=== PATIENT | female | born 1955 | race Caucasian/White ===

== ENCOUNTER 2016-11-05 03:03 | Inpatient (IN) ==
[2016-10-31 08:44] LABS: MANUAL DIFF NEEDED? NO; URINE MICRO REVIEW NEEDED? NO; URINE SOURCE CLEAN CATCH
[2016-10-31 08:59] LABS: BILIRUBIN URINE NEGATIVE (NEGATIVE); BLOOD URINE NEGATIVE (NEGATIVE); COLOR YELLOW; GLUCOSE URINE NEGATIVE (NEGATIVE); LEUKOCYTES URINE NEGATIVE (NEGATIVE); NITRITE URINE NEGATIVE (NEGATIVE); PH URINE 5.5; PROTEIN URINE NEGATIVE (NEGATIVE); SP GRAVITY URINE 1.019; TURBIDITY URINE CLEAR (CLEAR); UROBILINOGEN URINE NORMAL (NORMAL)
[2016-10-31 09:00] LABS: BASO% 0.9 % (0.0-0.8); EOS% 1.8 % (0.0-10.0); HEMATOCRIT 38.7 % (37.0-47.0); HEMOGLOBIN 12.5 g/dL (12.0-16.0); LYMPH# 1.37 X1000 (1.2-3.4); LYMPH% 24.1 % (20.5-51.1); MCH 27.1 PG (27-31); MCHC 32.3 g/dL (33-37); MCV 83.9 FL (81-99); MONO# 0.47 X1000 (0.11-0.59); MONO% 8.3 % (1.7-9.3); MPV 9.3 FL (7.4-10.4); NEUT% 64.9 % (42.2-75.2); PLT 286 X1000 (130-400); RBC 4.61 XMIL (4.2-5.4); UR EPITHELIAL CELLS <10 /HPF (<10); URINE BACTERIA 1+ /HPF; URINE RBC <10 /HPF (<10); URINE WBC <10 /HPF (<10)
[2016-10-31 09:03] LABS: INR 1.01; PROTIME 10.6 Seconds (9.2-11.7); PTT 27.4 Seconds (22.0-36.0)
[2016-10-31 09:22] LABS: AGAP 13; BUN 18 mg/dL (8-22); CALCIUM 8.9 mg/dL (8.8-10.2); CHLORIDE 105 mmol/L (98-107); COSMO 290; POTASSIUM 4.1 mmol/L (3.5-5.1); SODIUM 143 mmol/L (136-145); TCO2 25 mmol/L (25-35)
--- NOTE | 2016-10-31 11:49 | EKG Report ---
Test Performed on : 10/31/2016 08:29:46 AM Test Reason : MD ORDER Blood Pressure : / mmHG Vent. Rate : 080 BPM Atrial Rate : 080 BPM P-R Int : 158 ms QRS Dur : 074 ms QT Int : 386 ms P-R-T Axes : 014 015 029 degrees QTc Int : 445 ms Normal sinus rhythm. Normal ECG When compared with ECG of 15-JUL-2010 18:59, fusion complexes are no longer present premature ventricular complexes. are no longer present Confirmed by Edison BARBOUR, Xander Barbour ([id number]) on 10/31/2016 2:56:26 PM
[2016-11-05] MEDS ORDERED: PEPCID ONE (06:06)
[2016-11-05] MEDS ORDERED: CELEBREX ONE (06:06)
[2016-11-05] MEDS ORDERED: COLACE ONE (06:06)
[2016-11-05] MEDS ORDERED: REGLAN ONE (06:06)
[2016-11-05] MEDS ORDERED: VANCOMYCIN 1 GM/NS 1 GM/250 ML IVPB ONE (06:07)
[2016-11-05] MEDS ORDERED: LR 1,000 ML ONE (06:07)
[2016-11-05] MEDS ORDERED: LYRICA ONE (06:07)
[2016-11-05] MEDS ORDERED: DIPRIVAN 1% ONE ×2 (06:31→07:38)
[2016-11-05] MEDS ORDERED: XYLOCAINE-MPF 2% ONE (06:32)
[2016-11-05] MEDS ORDERED: QUELICIN (DOSE) ONE (06:32)
[2016-11-05] MEDS ORDERED: FENTANYL ONE (06:32)
[2016-11-05] MEDS ORDERED: ROBINUL ONE (06:32)
[2016-11-05] MEDS ORDERED: ATROPINE ONE (06:33)
[2016-11-05] MEDS ORDERED: SODIUM CHLORIDE 0.9% 10 ML ONE (06:54)
[2016-11-05] MEDS ORDERED: EPHEDRINE ONE (06:54)
[2016-11-05] MEDS ORDERED: CYKLOKAPRON 1,000 MG/NS 1,000 MG/100 ML IVPB ONE ×2 (06:56→06:58)
[2016-11-05] MEDS ORDERED: VANCOMYCIN ONE (06:56)
[2016-11-05] MEDS ORDERED: TORADOL ONE (06:56)
[2016-11-05] MEDS ORDERED: SODIUM CHLORIDE 0.9% ONE (06:56)
[2016-11-05] MEDS ORDERED: MARCAINE 0.25% PF/EPI 1:200,000 ONE (06:56)
[2016-11-05] MEDS ORDERED: DURAMORPH ONE (06:56)
[2016-11-05] MEDS ORDERED: VERSED ONE ×2 (06:57→07:59)
[2016-11-05] MEDS ORDERED: EXPAREL 1.3% ONE (06:57)
[2016-11-05] MEDS ORDERED: NEOSPORIN G.U. IRRIGANT ONE (06:57)
[2016-11-05] MEDS ORDERED: NEO-SYNEPHRINE ONE (07:33)
[2016-11-05] MEDS ORDERED: DECADRON ONE (08:20)
[2016-11-05] MEDS ORDERED: ZOFRAN ONE (08:20)
[2016-11-05 08:24] LABS: URINE MICRO REVIEW NEEDED? NO; URINE SOURCE CATH
[2016-11-05] MEDS ORDERED: OFIRMEV 1000 MG/ISOTONIC SOLN 1,000 MG/100 ML BOTTLE ONE (08:27)
[2016-11-05 08:41] LABS: BILIRUBIN URINE NEGATIVE (NEGATIVE); BLOOD URINE NEGATIVE (NEGATIVE); COLOR YELLOW; GLUCOSE URINE NEGATIVE (NEGATIVE); LEUKOCYTES URINE NEGATIVE (NEGATIVE); NITRITE URINE NEGATIVE (NEGATIVE); PH URINE 5.5; PROTEIN URINE NEGATIVE (NEGATIVE); SP GRAVITY URINE 1.021; TURBIDITY URINE CLEAR (CLEAR); UROBILINOGEN URINE NORMAL (NORMAL)
[2016-11-05 08:42] LABS: UR EPITHELIAL CELLS <10 /HPF (<10); URINE BACTERIA NEGATIVE /HPF; URINE RBC <10 /HPF (<10); URINE WBC <10 /HPF (<10)
[2016-11-05] MEDS ORDERED: NS 1,000 ML ONE (10:21)
[2016-11-05] MEDS ORDERED: ZOFRAN IV PRN (11:30)
[2016-11-05] MEDS ORDERED: MORPHINE IV PRN (11:30)
[2016-11-05] MEDS ORDERED: AMBIEN PO PRN (11:30)
[2016-11-05] MEDS ORDERED: MILK OF MAGNESIA PO PRN (11:30)
--- NOTE | 2016-11-05 11:31 | OPERATIVE NOTE ---
PROCEDURE DATE: 11/05/2016 PREOPERATIVE DIAGNOSIS: Left knee degenerative joint disease. POSTOPERATIVE DIAGNOSIS: Left knee degenerative joint disease. PROCEDURE PERFORMED: Left total knee arthroplasty using a [employer] size 7 femoral component, size 6 tibial baseplate, a 14 mm articular insert, and a 35 mm patellar component. SURGEON: Steve Pantoja MD STEAM TENDER: Elyse Ya PA-C. 2ND STEAM TENDER: Eder Rodriguez PA-C ANESTHESIA: Spinal. COMPLICATIONS: None. BLOOD LOSS: Minimal. DRAINS: Hemovac x1. DESCRIPTION OF PROCEDURE: The patient was brought to the operative suite and placed in supine position. After successful administration of general anesthesia, a well-padded tourniquet was placed on the left proximal thigh. The left lower extremity was prepped and draped in the usual sterile fashion. The leg was exsanguinated. The tourniquet was insufflated to 350 torr. A longitudinal incision was made beginning at the superior pole of the patella and extended distally to the tibia tuberosity. It was dissected sharply through the skin. Full-thickness skin flaps were elevated medially and laterally. A medial arthrotomy was made with a vastus snip. The medial capsule was elevated off the medial tibial plateau. The prepatellar fat pad, ACL, PCL, medial meniscus, and lateral meniscus were excised. A drill was entered in the center of distal femur. An intramedullary guide was placed. A distal cutting block was pinned into place. A distal cut was made with an oscillating saw. The femur was sized to a size 7. A size 7 cutting block was pinned in place. Anterior cuts, chamfer cuts, and posterior condylar cuts were made with an oscillating saw. Marginal osteophytes were removed with a rongeur. A box cutting block was pinned into place. A box cut was made with a box osteotome and oscillating saw. Posterior condyle osteophytes were removed with a curved osteotome and rongeur. Attention was then directed to the tibia. A drill was entered in the center of the tibia. An intramedullary guide was placed. Alignment was checked with a drop lisy, referencing off the anterior cortex of the tibia and the second ray of the foot, taking 4 mm off the low side of the tibia which, in this case, was medially. The tibial cutting block was pinned in place. The articular surface of the tibial plateau was removed with the oscillating saw. Marginal osteophytes were removed medially. Flexion and extension gaps were checked and balanced and she was found to be tight medially. A medial release was performed. She was checked and balanced at 14 mm. The tibia was sized to a size 6. A size 6 guide was used for the fin punch. The tibial trial, femoral trial, and 14 mm articular insert were placed, taken through range of motion, and found to have excellent alignment, balancing, and range of motion. Attention was then directed to the patella and 9 mm off the articular surface of the patella was removed with the oscillating saw. The patella was sized to a size 35. A size 35 guide was used to drill peg holes. The lateral facet was chamfered 30-45 degrees. A patella trial was placed, taken through range of motion, and found to have excellent patellar tracking. All trials were then removed. The knee was copiously irrigated and dried, being certain all bone debris was removed. The tibial component, femoral component, and patellar component were cemented into place with excess cement being removed with a Reinbeck. Once the cement had hardened, excess cement was again removed with an osteotome. The knee was again copiously irrigated and dried, being certain all bone and cement debris was removed. A drain was placed exiting superior laterally and buried in the lateral gutter. The trial articular insert was removed. The knee was copiously infiltrated with Exparel, including the posterior capsule, anterior capsule, anterior musculature, and subcutaneous tissue. The definitive articular insert was locked into place. The knee was again taken through range of motion and again found to have excellent alignment, balancing, range of motion, and patellar tracking. The medial arthrotomy was closed with running 0 V-Loc suture. The skin edges were approximated with 2-0 Vicryl and closed with 3-0 Vicryl and running and a Prineo dressing. The patient tolerated the procedure well without complication. At the end of the procedure, all counts were correct x2. The patient was transferred to the recovery room in stable condition. cc: Steve Pantoja MD
[2016-11-05] MEDS: TYLENOL PO SCH ×2 (12:00→17:37)
[2016-11-05] MEDS: ULTRAM PO SCH ×2 (12:00→17:37)
[2016-11-05] MEDS ORDERED: LEXAPRO PO ONE (17:41)
[2016-11-05] MEDS ORDERED: VANCOMYCIN 1 GM/NS 1 GM/250 ML IVPB IV ONE (19:30)
[2016-11-05] MEDS: OXY IR PO PRN (19:48)
[2016-11-05] MEDS: COLACE PO SCH (19:48)
[2016-11-05] MEDS: LYRICA PO SCH (19:49)
[2016-11-05] MEDS: CELEBREX PO SCH (19:49)
[2016-11-05] MEDS: NS 1,000 ML IV SCH (19:50)
[2016-11-06] MEDS: ULTRAM PO SCH ×3 (00:33→11:38)
[2016-11-06] MEDS: TYLENOL PO SCH ×3 (00:34→11:38)
[2016-11-06] MEDS: NS 1,000 ML IV SCH (00:34)
[2016-11-06] MEDS ORDERED: XARELTO PO SCH (06:00)
[2016-11-06 06:12] LABS: HEMOGLOBIN 10.1 g/dL (12.0-16.0)
[2016-11-06 06:39] LABS: AGAP 10; BUN 16 mg/dL (8-22); CALCIUM 8.5 mg/dL (8.8-10.2); CHLORIDE 105 mmol/L (98-107); COSMO 284; POTASSIUM 4.4 mmol/L (3.5-5.1); SODIUM 141 mmol/L (136-145); TCO2 26 mmol/L (25-35)
[2016-11-06] MEDS: CELEBREX PO SCH ×2 (06:58→08:24)
[2016-11-06] MEDS: COLACE PO SCH ×2 (06:58→08:24)
[2016-11-06] MEDS: LYRICA PO SCH ×2 (06:59→08:24)
[2016-11-06] MEDS: PERIDEX MT SCH ×2 (06:59→08:24)
[2016-11-06] MEDS: OXY IR PO PRN (07:40)
[2016-11-06] MEDS ORDERED: LEXAPRO PO SCH (09:00)
[2016-11-06] MEDS ORDERED: DECADRON IV ONE (09:00)
[2016-11-06] MEDS ORDERED: THERA M PLUS PO SCH (09:00)
[2016-11-06] MEDS ORDERED: PEPCID PO SCH (09:00)
[2016-11-06 11:36] VITALS: BP 119/68
--- NOTE | 2016-11-06 17:05 | DISCHARGE SUMMARY ---
ADMISSION DATE: 11/05/2016 DISCHARGE DATE: 11/06/2016 DISCHARGE DIAGNOSIS: Left knee degenerative joint disease, status post left total knee arthroplasty. DISCHARGE MEDICATIONS: See discharge medication list. DISPOSITION: The patient is discharged home with home health. DISCHARGE INSTRUCTIONS: Instructions for total knee arthroplasty protocol, instructed to return to see Dr. Pantoja next . HOSPITAL COURSE: On the day of admission, patient underwent a left total knee arthroplasty. Her postoperative course was unremarkable. At discharge, she is afebrile, tolerating regular diet, ambulating well with physical therapy. Yesterday she walked 50 feet. Her wound is clean, dry, and intact without sign of infection. Her hemoglobin is 10.1, her hematocrit is 32. She had 50 mL of drainage from her Hemovac. We will have her discharged home with home health after she works with physical therapy this morning. She is discharged in stable condition with instructions to follow up as described above. Dictated by ANGIE Tierney for Steve Pantoja MD cc: ANGIE Tierney MD
== END 2016-11-06 14:41 | disposition home health service (06) ==
LOC: SURHOLD 03:03 → 4N 07:59
PROVIDERS: ADMIT Orthopaedic Surgery; ATTEND Orthopaedic Surgery